=== PATIENT | female | born 2000 | race Two or more races ===

== ENCOUNTER 2021-09-06 15:19 | Outpatient (CLI) | payer OTHER | END 2021-09-06 16:19 | disposition home or self-care (01) | LOC: PRENATAL 15:19 | PROVIDERS: ATTEND Obstetrics & Gynecology Maternal & Fetal Medicine | DX: O36.5990 Maternal care for other known or suspected poor fetal growth, unspecified trimester, not applicable or unspecified (principal); O14.90 Unspecified pre-eclampsia, unspecified trimester ==

== ENCOUNTER 2021-09-17 17:04 | Outpatient (CLI) | payer OTHER ==
[2021-09-17] MEDS ORDERED: PRENATAL + DHA1 EAC1 PO (17:17)
[2021-09-17] MEDS ORDERED: ASA81 MG PO (17:18)
== END 2021-09-18 15:50 | disposition home or self-care (01) ==
LOC: OBS/DEL 17:04
PROVIDERS: ATTEND Obstetrics & Gynecology
DX: O26.893 Other specified pregnancy related conditions, third trimester (principal); Z3A.30 30 weeks gestation of pregnancy; R10.2 Pelvic and perineal pain; N76.0 Acute vaginitis; Z20.822 Contact with and (suspected) exposure to COVID-19

== ENCOUNTER 2021-11-15 13:00 | Inpatient (IN) | payer OTHER ==
[~2021-11-15] VITALS: Ht 165.1 cm; Wt 64.4 kg
[~2021-11-15 13:00] MED LIST: ASA81 MG PO; PRENATAL + DHA1 EAC1 PO
== END 2021-11-24 13:35 | disposition home or self-care (01) | DRG 807 ==
LOC: LDR 11-22 13:16 → OB/GYN 11-22 13:16
PROVIDERS: ADMIT Obstetrics & Gynecology; ATTEND Obstetrics & Gynecology
PROC: 10E0XZZ Delivery of Products of Conception, External Approach (ICD-10-PCS; principal; 2021-11-22)
PROC: 0UQMXZZ Repair Vulva, External Approach (ICD-10-PCS; 2021-11-22)
PROC: 4A1HXCZ Monitoring of Products of Conception, Cardiac Rate, External Approach (ICD-10-PCS; 2021-11-22)
DX: O71.82 Other specified trauma to perineum and vulva (principal); Z37.0 Single live birth; Z3A.39 39 weeks gestation of pregnancy; Z20.822 Contact with and (suspected) exposure to COVID-19

== ENCOUNTER 2021-11-17 12:00 | Outpatient (CLI) | payer OTHER | END 2021-11-17 12:30 | disposition home or self-care (01) | LOC: NST 12:00 | PROVIDERS: ATTEND Obstetrics & Gynecology | DX: Z34.83 Encounter for supervision of other normal pregnancy, third trimester (principal) ==

== ENCOUNTER 2022-07-24 08:41 | Outpatient (CLI) | payer OTHER | END 2022-07-24 09:30 | disposition home or self-care (01) | LOC: PRENATAL 08:41 | PROVIDERS: ATTEND Obstetrics & Gynecology Maternal & Fetal Medicine | DX: O36.80X0 Pregnancy with inconclusive fetal viability, not applicable or unspecified (principal); Z3A.13 13 weeks gestation of pregnancy ==

== ENCOUNTER 2022-09-17 08:17 | Outpatient (CLI) | payer OTHER | END 2022-09-17 10:00 | disposition home or self-care (01) | LOC: PRENATAL 08:17 | PROVIDERS: ATTEND Obstetrics & Gynecology Maternal & Fetal Medicine | DX: O35.9XX0 Maternal care for (suspected) fetal abnormality and damage, unspecified, not applicable or unspecified (principal); O35.3XX0 Maternal care for (suspected) damage to fetus from viral disease in mother, not applicable or unspecified; O14.90 Unspecified pre-eclampsia, unspecified trimester; Z3A.20 20 weeks gestation of pregnancy ==

== ENCOUNTER 2022-12-10 13:53 | Outpatient (CLI) | payer OTHER | END 2022-12-10 15:00 | disposition home or self-care (01) | LOC: PRENATAL 13:53 | PROVIDERS: ATTEND Obstetrics & Gynecology Maternal & Fetal Medicine | DX: O26.849 Uterine size-date discrepancy, unspecified trimester (principal); O36.8199 Decreased fetal movements, unspecified trimester, other fetus; Z3A.32 32 weeks gestation of pregnancy ==

== ENCOUNTER 2023-05-11 13:33 | Emergency (ER) | payer OTHER ==
[~2023-05-11] VITALS: Ht 165.1 cm; Wt 56.7 kg
[2023-05-11 15:37] LABS: HEMATOCRIT 35.7 % (36.0-45.00); HEMOGLOBIN 12.8 g/dL (12.0-15.00); MEAN CELL VOLUME 89.6 fL (80.00-100.00); MEAN CORPUSCULAR HEMOGLOBIN 32.1 pg (27.00-32.0); MEAN CORPUSCULAR HGB CONC 35.9 g/dl (32.0-36.0); PLATELET COUNT 239 K/uL (150-450); RED BLOOD COUNT 3.99 M/uL (4.00-6.00); RED CELL DISTRIBUTION WIDTH 12.8 % (11.5-14.5)
== END 2023-05-11 19:36 | disposition home or self-care (01) ==
LOC: ER 13:33
PROVIDERS: General Practice
DX: O04.89 (Induced) termination of pregnancy with other complications (principal); O04.6 Delayed or excessive hemorrhage following (induced) termination of pregnancy; R10.30 Lower abdominal pain, unspecified